=== PATIENT | female | born 1950 | race Caucasian/White ===

== ENCOUNTER 2019-01-24 11:09 | Emergency (ER) | payer OTHER ==
[~2019-01-24] VITALS: Ht 157.5 cm; Wt 77.0 kg
[2019-01-24 12:27] VITALS: BP 125/65
[2019-01-24] MEDS ORDERED: DIPHENHYDRAMINE 50MG CAPSULE PO ONE (14:00)
== END 2019-01-24 15:45 | disposition left against medical advice (07) ==
LOC: ER 11:23 → CANBEDREQ 15:56
DX: R60.0 Localized edema (principal); M79.662 Pain in left lower leg; R03.0 Elevated blood-pressure reading, without diagnosis of hypertension; Z96.651 Presence of right artificial knee joint
CPT/HCPCS: 93971; 99284